=== PATIENT | female | born 1985 | race Two or more races ===

== ENCOUNTER 2020-04-18 20:20 | Emergency (ER) | payer OTHER ==
[~2020-04-18] VITALS: Ht 165.1 cm; Wt 77.1 kg
--- NOTE | 2020-04-18 20:30 | NUR ---
ED Nurse Note: Pt ambulated to ED from home c/o L ear pain 10/ since this afternoon. pt denies fever at home or any other symptoms, VSS. Pt is A&Ox4.
[2020-04-18 20:32] VITALS: BP 108/71
--- NOTE | 2020-04-18 20:34 | Emergency Room Report ---
History of Present Illness General Chief Complaint: Earache Source: Patient Present Illness HPI 34-year-old female with no signal past medical history here complaining of sudden onset of left ear pain without any dizziness or vertigo. Denies any sore throat, cough or congestion, shortness of breath, headache and dizziness. Denies any water exposure to the ear. Rates the pain 5 out of 10 worsened when changing the position of her head. Also reports that he only makes it worse. Has not taken medication for symptom relief. Denies any discharge from the ear. Denies any tinnitus, hearing loss. Denies . 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 COVID-19 Screening: Negative COVID-19 COVID-19 Testing Source: [facility] Patient History Past Medical History: see triage record Past Surgical History: none Pertinent Family History: none Last Menstrual Period: 04/11/2020 Now: No Immunizations: UTD Reviewed Nursing Documentation: PMH: Agreed; PSxH: Agreed Nursing Documentation-PMH Past Medical History: No Stated History Review of Systems All Other Systems: negative except mentioned in HPI Physical Exam Vital Signs Date Time Temp Pulse Resp B/P (MAP) Pulse Ox O2 Delivery O2 Flow Rate FiO2 04/18/20 20:24 97.9 73 15 108/71 (83) 99 Room Air Sp02 EP Interpretation: reviewed, normal General Appearance: well appearing, no apparent distress Head: normocephalic, atraumatic ENT: other - TM bulging left ear Neck: full range of motion, supple Respiratory: no respiratory distress, speaking full sentences Cardiovascular #1: regular rate, rhythm Gastrointestinal: non-distended Musculoskeletal: gait/station normal Neurologic: alert, normal gait Psychiatric: mood/affect normal Skin: no rash Lymphatic: no adenopathy Medical Decision Making PA Attestation All my diagnosis and treatment plans were reviewed ad discussed with my supervising physician Dr. Ward Diagnostic Impression: Primary Impression: Otitis media ER Course 34-year-old female with no signal past medical history here complaining of sudden onset of left ear pain without any dizziness or vertigo. Denies any sore throat, cough or congestion, shortness of breath, headache and dizziness. Denies any water exposure to the ear. Rates the pain 5 out of 10 worsened when changing the position of her head. Also reports that he only makes it worse. Has not taken medication for symptom relief. Denies any discharge from the ear. Denies any tinnitus, hearing loss. Denies . Ddx considered but are not limited to:mastoiditis, OM, OE, benign positional vertigo otitis media strep pharyngitis, URI, tonsillitis, peritonsillar abscess, influneza Vital signs: are WNL, pt. is afebrile H&PE are most consistent with: OM left ear ORDERS: Augmentin, ibuprofen ED INTERVENTIONS: None required at this time. DISCHARGE: At this time pt. is stable for d/c to home. Will provide printed p atient care instructions, and any necessary prescriptions. Care plan and follow up instructions have been discussed with the patient prior to discharge. Take medication as directed, follow primary care provider, if worsening symptoms return to the emergency room Last Vital Signs Date Time Temp Pulse Resp B/P (MAP) Pulse Ox O2 Delivery O2 Flow Rate FiO2 04/18/20 20:24 97.9 73 15 108/71 (83) 99 Room Air Disposition: HOME, SELF-CARE Condition: Stable Scripts Ibuprofen (Ibu) 800 Mg Tablet 800 MG PO TID, #30 TAB Prov: Hannah Stanton 04/18/20 Amoxicillin/Potassium Clav 875-125* (AUGMENTIN 875-125 TABLET*) 1 Each Tablet 1 TAB ORAL TWICE A DAY for 10 Days, #20 TAB Prov: Hannah Stanton 04/18/20 Patient Instructions: Otitis Media, Adult Additional Instructions: Take medication as directed, follow primary care provider, worsening symptoms return to emergency room Hannah Stanton Apr 18, 2020 20:34
[2020-04-18] MEDS ORDERED: AUGMENTIN 875-1 EAC1 ORAL (20:35)
[2020-04-18] MEDS ORDERED: IBU800 MG PO (20:35)
[2020-04-18 20:40] VITALS: BP 108/71
--- NOTE | 2020-04-18 20:40 | NUR ---
ER DISCHARGE NOTE: Patient is cleared to be discharged per ERMD, pt is aox4, on room air, with stable vital signs. pt was given dc and prescription instructions, pt was able to verbalize understanding, pt id band removed. pt is able to ambulate with steady gait. pt took all belongings.
== END 2020-04-18 20:40 | disposition home or self-care (01) ==
LOC: EMR 20:33
DX: H66.92 Otitis media, unspecified, left ear (principal)
CPT/HCPCS: 99282